=== PATIENT | male | born 1985 | race Caucasian/White ===

== ENCOUNTER 2016-10-08 21:35 | Emergency (ER) | payer OTHER ==
[2016-10-08 21:46] VITALS: BP 135/92
[2016-10-08] MEDS ORDERED: Ondansetron 4 MG/2 ML SDV IVPUSH ONE (22:00)
[2016-10-08] MEDS ORDERED: Sodium Chloride 0.9% 10 ML Syringe FLUSH PRN (22:00)
[2016-10-08] MEDS ORDERED: HYDROmorphone 0.5 MG/0.5 ML Syringe IVPUSH ONE (22:01)
--- NOTE | 2016-10-08 22:11 | EDM.PDOC ---
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 From what I understand a strap broke causing a heavy flexible six-inch pipe to fall to the ground. This had somewhat of a U-shaped 2 at with the ends on the ground and then a portion of the hose off of the ground up into the air fell over against him striking his chest, knocking him backward to the ground. The surface or mat that he fell unto was covered with some wood and possibly some steel as well. He was wearing a hard hat but that may of gotten knocked off of his head as he fell. He did strike the back of his head with visible posterior scalp injury. He is reported to of been "dazed" but according to workers that were with him he is not reported to have had LOC. He does present with quite severe headache. There has been nausea and he has vomited prior to arrival. Denies neck pain at this time. He has quite severe right low back pain and also some right knee discomfort. No peripheral numbness or tingling. No focal weakness. No chest pain or difficulty breathing. No abdominal pain. Headache Pain Score (Numeric/FACES): 8 Back Pain Score (Numeric/FACES): 9 - Related Data Allergies Allergy/AdvReac Type Severity Reaction Status Date / Time No Known Allergies Allergy Verified 10/08/16 21:37 Home Meds: Home Meds . [No Known Home Meds] 10/08/16 [History] Past Medical History - Past Health History Medical/Surgical History: Denies Medical/Surgical History HEENT History: Reports: None Cardiovascular History: Reports: None Respiratory History: Reports: None Genitourinary History: Reports: None Musculoskeletal History: Reports: None Neurological History: Reports: None Psychiatric History: Reports: None Endocrine/Metabolic History: Reports: None Hematologic History: Reports: None Immunologic History: Reports: None Oncologic (Cancer) History: Reports: None Dermatologic History: Reports: None - Infectious Disease History Infectious Disease History: Reports: None - Past Surgical History HEENT Surgical History: Reports: None Cardiovascular Surgical History: Reports: None GI Surgical History: Reports: Hernia Repair/Other Male Surgical History: Reports: None Social & Family History - Family History HEENT: Reports: None Cardiac: Reports: Hypertension Respiratory: Reports: None GI: Reports: None : Reports: None OBGYN: Reports: None Musculoskeletal: Reports: None Neurological: Reports: None Psychiatric: Reports: None Endocrine/Metabolic: Reports: None Hematologic: Reports: None Immunologic: Reports: None Dermatologic: Reports: None Oncologic: Reports: Lung - Tobacco Use Smoking Status *Q: Current Every Day Smoker Years of Tobacco use: 18 Packs/Tins Daily: 0.5 - Caffeine Use Caffeine Use: Reports: Coffee, Soda - Alcohol Use Days Per Week of Alcohol Use: 7 Number of Drinks Per Day: 2 Total Drinks Per Week: 14 - Recreational Drug Use Recreational Drug Use: No - Living Situation & Occupation Living situation: Reports: Occupation: Employed ED ROS GENERAL - Review of Systems Review Of Systems: See Below Constitutional: Reports: Weakness (Generalized) HEENT: Denies: Ear Discharge, Vertigo, Vision Change Respiratory: Denies: Shortness of Breath, Pleuritic Chest Pain Cardiovascular: Denies: Chest Pain GI/Abdominal: Reports: Nausea, Vomiting. Denies: Abdominal Pain Musculoskeletal: Reports: Back Pain (Right low back), Joint Pain (Right knee). Denies: Neck Pain Skin: Reports: Other (There are areas of abrasion left upper back and right lower back). Denies: Bruising Neurological: Reports: Dizziness, Headache (Moderately severe). Denies: Numbness, Tingling, Trouble Speaking, Change in Speech ED EXAM,LOWER BACK PAIN/INJURY - Physical Exam Exam: See Below General Appearance: Alert, Moderate Distress Eye Exam: Bilateral Eye: PERRL Ears: Normal External Exam Nose: Normal Inspection Throat/Mouth: Normal Inspection, Normal Oropharynx Head: Other (There is an area of bruising, swelling superficial abrasion right posterior scalp, no bony tenderness of the face). No: Facial Swelling Neck: Non-Tender, Other (No bruising, swelling or deformity) Respiratory/Chest: No Respiratory Distress, Lungs Clear, Chest Non-Tender Cardiovascular: Regular Rate, Rhythm GI/Abdominal: Soft, Non-Tender, Pelvis Stable. No: Guarding Back Exam: Paraspinal Tenderness (Right low back), Vertebral Tenderness (Lower lumbar back), Other (Areas of abrasion left upper back, nontender, areas of abrasion right lower back with moderate diffuse tenderness right low back) Extremities: Non-Tender. No: Leg Pain Neurological: No Motor/Sensory Deficits, Oriented x 3, Other (Mildly drowsy, does answer questions appropriately) Skin Exam: Warm, Dry Course - Vital Signs Last Recorded V/S: Last Vital Signs Temp 97.0 F 10/08/16 21:38 Pulse 80 10/08/16 21:38 Resp BP 135/92 H 10/08/16 21:38 Pulse Ox 97 10/08/16 21:38 - Orders/Labs/Meds Orders: Active Orders 24 hr Category Date Time Status Peripheral IV Care [RC] . DIRECTED Care 10/08/16 22:00 Active Cervical Spine wo Cont [CT] Stat Exams 10/08/16 22:01 Taken Head wo Cont [CT] Stat Exams 10/08/16 22:01 Taken Knee Min 4V Rt [CR] Stat Exams 10/08/16 21:59 Taken Lumbar Spine wo Cont [CT] Stat Exams 10/08/16 22:01 Taken Peripheral IV Insertion Adult [OM.PC] Stat Oth 10/08/16 22:00 Ordered Labs: Laboratory Tests 10/08/16 Range/Units 22:20 WBC 16.24 H (4.23-9.07) K/mm3 RBC 4.59 L (4.63-6.08) M/mm3 Hgb 13.9 (13.7-17.5) gm/L Hct 39.9 L (40.1-51.0) % MCV 86.9 (79.0-92.2) fl MCH 30.3 (25.7-32.2) pg MCHC 34.8 (32.2-35.5) g/dl RDW Std Deviation 38.4 (35.1-43.9) fL Plt Count 201 (163-337) K/mm3 MPV 9.6 (9.4-12.3) fl Neut % (Auto) 77.8 H (34.0-67.9) % Lymph % (Auto) 14.0 L (21.8-53.1) % [place] % (Auto) 7.1 (5.3-12.2) % Eos % (Auto) 0.4 L (0.8-7.0) Baso % (Auto) 0.4 (0.1-1.2) % Neut # (Auto) 12.65 H (1.78-5.38) K/mm3 Lymph # (Auto) 2.27 (1.32-3.57) K/mm3 [place] # (Auto) 1.15 H (0.30-0.82) K/mm3 Eos # (Auto) 0.06 (0.04-0.54) K/mm3 Baso # (Auto) 0.06 (0.01-0.08) K/mm3 Meds: Medications Discontinued Medications Generic Name Dose Route Start Last Admin Trade Name Freq PRN Reason Stop Dose Admin Hydromorphone HCl 0.25 mg 10/08/16 22:01 10/08/16 22:08 Dilaudid IVPUSH 10/08/16 22:02 0.25 mg ONETIME ONE Administration Metoclopramide HCl 5 mg 10/08/16 22:45 10/08/16 22:51 Reglan IVPUSH 10/08/16 22:46 5 mg ONETIME ONE Administration Ondansetron HCl 4 mg 10/08/16 22:00 10/08/16 22:09 Zofran IVPUSH 10/08/16 22:01 4 mg ONETIME ONE Administration Ondansetron HCl 4 mg 10/08/16 22:53 10/08/16 22:55 Zofran Odt PO 10/08/16 22:54 Not Given ONETIME ONE Sodium Chloride 10 ml 10/08/16 22:00 10/08/16 22:09 Saline Flush FLUSH 10 ml ASDIRECTED PRN Administration Keep Vein Open - Re-Assessments/Exams Free Text/Narrative Re-Assessment/Exam: 10/09/16 11:30. CT of head was good with no apparent abnormality. CT of neck no fracture, CT of lumbar spine shows fracture of transverse process of L2 and L3 with very minimal displacement. X-rays of the knee are negative for fracture. We did initially treat with Zofran 4 mg IV for nausea. That did help some but with continued nausea we did follow that with 5 mg Reglan IV. We also have given Dilaudid 0.25 mg IV for discomfort. Results of CT scans have been discussed with patient and with his analysis or research safety inspector. 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 They will arrange in the morning for him to have a followup visit with their occupational health provider who is a physician up at [place]. He still does have headache but it is less severe from arrival. The need for rest, no exertional activity for at least the next week and no lifting more than 10 pounds has been discussed with patient, analysis or research safety inspector and other company personnel present. Their [place] location [place] of [place] more than 20 miles out of town. I am also told that his is on her way down from [place] to the [facility] site and will be with the patient as well as other company people for the remainder of the night. Departure - Departure Time of Disposition: 23:35 Disposition: Home, Self-Care 01 Condition: fair Clinical Impression: Head injury, closed, with concussion Qualifiers: Encounter type: initial encounter Loss of consciousness presence/duration: without LOC Qualified Code(s): S06.0X0A - Concussion without loss of consciousness, initial encounter Contusion, back Qualifiers: Encounter type: initial encounter Laterality: right Qualified Code(s): S20.221A - Contusion of right back wall of thorax, initial encounter Fall Qualifiers: Encounter type: initial encounter Qualified Code(s): W19.XXXA - Unspecified fall, initial encounter Fracture of spinous process of lumbar vertebra Qualifiers: Encounter type: initial encounter Fracture type: closed Qualified Code(s): S32.009A - Unspecified fracture of unspecified lumbar vertebra, initial encounter for closed fracture - Discharge Information Instructions: Lumbar Fracture Referrals: PCP,None [Primary Care Provider] - Forms: ED Department Discharge, Return to Work/School Form Additional Instructions: rest, the treatment for a concussion is rest and time, Also there is fracture noted of 2 spinous processes of your lumbar spine, Radiologist report pending. No exertional activity for 1 week, No lifting more than 10 pounds for at least 2 weeks, tylenol q 6 to 8 hr as needed for discomfort, clear liquids and bland diet as tolerated, follow up with Occupation health provider tomorrow, return to ED as needed if symptoms worsening in any way. - My Orders Last 24 Hours: My Active Orders 10/08/16 21:59 Knee Min 4V Rt [CR] Stat 10/08/16 22:00 Peripheral IV Care [RC] . DIRECTED Peripheral IV Insertion Adult [OM.PC] Stat 10/08/16 22:01 Cervical Spine wo Cont [CT] Stat Head wo Cont [CT] Stat Lumbar Spine wo Cont [CT] Stat - Assessment/Plan Last 24 Hours: My Active Orders 10/08/16 21:59 Knee Min 4V Rt [CR] Stat 10/08/16 22:00 Peripheral IV Care [RC] . DIRECTED Peripheral IV Insertion Adult [OM.PC] Stat 10/08/16 22:01 Cervical Spine wo Cont [CT] Stat Head wo Cont [CT] Stat Lumbar Spine wo Cont [CT] Stat
[2016-10-08] MEDS ORDERED: Metoclopramide 10 MG/2 ML SDV IVPUSH ONE (22:45)
[2016-10-08] MEDS ORDERED: Ondansetron 4 MG Tab.DIS PO ONE (22:53)
--- NOTE | 2016-10-09 09:24 | CT ---
CT lumbar spine Technique: Multiple axial sections were obtained from the bottom of T11 inferiorly through the L5-S1 disc. Reconstructed sagittal and coronal images were reviewed. Comparison: No previous lumbar spine imaging is available. Findings: Disc protrusion is identified into the inferior endplate of L2. Surrounding sclerosis is seen and this is old. Mild disc space narrowing noted at L2-L3, L3-L4 and L5-S1. L3-L4 and L5-S1 discs show vacuum phenomena. Scattered anterior osteophytes are seen primarily within L4 and L5. Slight circumferential disc bulge noted at L2-L3, L3-L4, L4-L5 and L5-S1. Disc bulging at L3-L4 causes mild neural foraminal stenosis although nerve roots appear to exit without compromise. Minimally displaced fractures are identified within the right transverse process of L2 and L3. No additional fracture is seen. No central canal stenosis is seen. No abnormal subluxation is seen. Impression: 1. Degenerative change as described above. 2. Minimally displaced transverse process fractures at L2 and L3 on the right side. 3. No other acute abnormality is identified. Agree with preliminary report issued by [facility] (preliminary report dictated on 10/09/16, 12:11 AM Central Time) Diagnostic code #3
--- NOTE | 2016-10-09 09:24 | CT ---
CT cervical spine Technique: Multiple axial sections were obtained from above C1 inferiorly to the top of T2. Reconstructed sagittal and coronal images were reviewed. Findings: Visualized mastoid sinuses and middle ear cavities are clear. Mild degenerative change noted between the dens and anterior arch of C1. Mild disc space narrowing noted at C4-C5. Severe disc space narrowing noted at C5-C6 and moderate disc space narrowing noted at C6-C7. Anterior osteophytes are noted at C4-C5 through C6-C7. Slight kyphosis is seen on the reconstructed sagittal images. Vertebral bodies and posterior arches are intact with no fracture being seen. No bony central canal stenosis is seen. Mild to moderate right-sided neural foraminal stenosis noted at C4-C5. Mild to moderate left-sided neural foraminal stenosis noted at C5-C6. Other neural foramina are patent. Mild degenerative change seen within the uncovertebral joints at C3-C4, C4-C5, C5-C6 and C6-C7. Impression: 1. Scattered degenerative change as noted above. 2. Mild kyphosis most likely positional. 3. No acute fracture is identified on CT study of the cervical spine. Agree with preliminary report issued by [facility] (preliminary report dictated on 10/09/16, 12:14 AM Central Time) Diagnostic code #2
--- NOTE | 2016-10-09 09:24 | CR ---
Right knee: Four views of the right knee were obtained. Comparison: No previous knee exam. Slight lateral joint space narrowing is suggested. Medial joint space is maintained. No joint effusion is seen. No acute fracture or other abnormality is identified. Impression: 1. Very minimal lateral joint space narrowing is seen. Right knee exam is otherwise unremarkable. Diagnostic code #2
--- NOTE | 2016-10-09 09:24 | CT ---
Head CT Technique: Multiple axial sections through the brain were obtained. Intravenous contrast was not utilized. Comparison: No previous intracranial imaging. Findings: Sulci over the convexities are mildly prominent. No abnormal parenchymal densities are seen. No evidence of intracranial hemorrhage. No midline shift or mass effect is seen. Bone window settings were reviewed which show the visualized sinuses to appear clear. No acute calvarial abnormality is identified. Scalp hematoma identified within the posterior right scalp. Impression: 1. Slightly prominent cortical atrophy which may relate to old trauma, some medication use can cause this finding as well as other drug abuse. Please correlate with the patient's history. 2. No acute intracranial abnormality is seen. Incidental scalp hematoma. Agree with preliminary report issued by [facility] (preliminary report dictated on 10/09/16, 12:12 AM Central Time) Diagnostic code #2
== END 2016-10-09 00:23 | disposition home or self-care (01) ==
LOC: JD.ED 21:35
DX: S06.0X0A Concussion without loss of consciousness, initial encounter (principal); S32.039A Unspecified fracture of third lumbar vertebra, initial encounter for closed fracture; S32.029A Unspecified fracture of second lumbar vertebra, initial encounter for closed fracture; S20.221A Contusion of right back wall of thorax, initial encounter; F17.210 Nicotine dependence, cigarettes, uncomplicated; Z98.890 Other specified postprocedural states; W20.8XXA Other cause of strike by thrown, projected or falling object, initial encounter; Y92.65 Oil rig as the place of occurrence of the external cause; Y99.0 Civilian activity done for income or pay
CPT/HCPCS: 36415; 70450; 72125; 72131; 73564; 85025; 96374; 96375; 99284; J1170; J2405; J2765; J7050